=== PATIENT | male | born 1970 | race Caucasian/White ===

== ENCOUNTER → 2024-04-03 06:33 | Day surgery (SDC) | payer OTHER, SELFPAY ==
[2024-04-03 08:33] LABS: Glucose - Point of Care 137 mg/dl (70-99)
== END ==
LOC: GI 06:33
PROVIDERS: ATTENDING PHYSICIAN Internal Medicine Gastroenterology
DX: K57.30 Diverticulosis of large intestine without perforation or abscess without bleeding (principal); K64.0 First degree hemorrhoids; D12.3 Benign neoplasm of transverse colon; D12.4 Benign neoplasm of descending colon; K63.5 Polyp of colon; K63.3 Ulcer of intestine; K57.32 Diverticulitis of large intestine without perforation or abscess without bleeding; R12 Heartburn; K22.89 Other specified disease of esophagus; K21.00 Gastro-esophageal reflux disease with esophagitis, without bleeding; K22.70 Barrett's esophagus without dysplasia; K31.A19 Gastric intestinal metaplasia without dysplasia, unspecified site
CPT/HCPCS: 45385; 45380; 43239; 88305; 82962